=== PATIENT | male | born 1965 | race Caucasian/White ===

== ENCOUNTER 2022-10-06 08:07 | Outpatient (CLI) | payer OTHER, SELFPAY ==
[2022-10-06 12:38] LABS: Chloride* 105 mmol/L (96-114); Potassium* 4.6 mmol/L (3.6-5.1); Sodium* 140 mmol/L (135-149)
[2022-10-06 12:40] LABS: Cholesterol* 166 mg/dL (90-199)
[2022-10-06 12:41] LABS: Blood Urea Nitrogen* 16 mg/dL (7-30); Carbon Dioxide* 31 mmol/L (20-32); Creatinine* 0.9 mg/dL (0.5-1.5); Estimated Glomerular Filt Rate 98 ml/min; Glucose* 98 mg/dL (60-115); Triglycerides* 100 mg/dL (40-149)
[2022-10-06 12:42] LABS: Calcium* 9.1 mg/dL (8.4-10.6); HDL Cholesterol* 44 mg/dL (>=40); LDL Cholesterol Calculated 102 mg/dL (<100)
== END 2022-10-06 08:08 | disposition home or self-care (01) ==
PROVIDERS: PCP Family Medicine; Visit Provider Family Medicine
DX: I10 Essential (primary) hypertension (principal); E78.5 Hyperlipidemia, unspecified
CPT/HCPCS: 80048; 80061

== ENCOUNTER 2023-05-01 08:30 | Outpatient (RCR) | payer OTHER, SELFPAY | END 2023-08-29 23:59 | disposition home or self-care (01) | PROVIDERS: PCP Family Medicine; Visit Provider Family Medicine | DX: M54.50 Low back pain, unspecified (principal); Z74.09 Other reduced mobility; R29.3 Abnormal posture; R53.1 Weakness; Z51.89 Encounter for other specified aftercare | CPT/HCPCS: 97110; 97161 ==

== ENCOUNTER 2024-07-17 08:55 | Outpatient (CLI) | payer OTHER, SELFPAY ==
--- NOTE | 2024-07-17 09:15 | CRLHL7_ITS ---
For Patients: As a result of the Century Cures Act, medical imaging exams and procedure reports are released immediately into your electronic medical record. You may view this report before your referring provider. If you have questions, please contact your health care provider. Indication: Unilateral osteoarthritis Procedure : Informed consent was obtained. The site was marked. Time-out was performed. The skin of the right hip was cleansed with ChloraPrep. A sterile drape was placed. 8 cc of 1 percent lidocaine was administered for superficial anesthesia. Subsequently a 22 gauge spinal needle was introduced into the right hip joint under intermittent fluoroscopic guidance. Injection of 2 cc nonionic Omnipaque 240 contrast confirmed intra-articular location. Subsequently 7 cc of 1 percent lidocaine and 2 cc of 40 milligram/cc Depo-Medrol then injected into the right hip joint. The needle was removed and hemostasis achieved with direct pressure. A dressing was placed. The patient tolerated the procedure well without immediate complication. Total fluoroscopy time 22 seconds. Impression: Successful fluoroscopically guided right hip injection with 80 milligrams of Depo-Medrol. Dictated by Miles Weber MD @ 07/17/2024 10:27:09 AM (Electronically Signed)
== END 2024-07-17 08:56 | disposition home or self-care (01) ==
LOC: RAD 08:56
PROVIDERS: PCP Family Medicine; Visit Provider Orthopaedic Surgery Sports Medicine
DX: M16.11 Unilateral primary osteoarthritis, right hip (principal)
CPT/HCPCS: 20610; 77002; Q9966

== ENCOUNTER 2025-03-17 08:09 | Outpatient (CLI) | payer BC, SELFPAY | END 2025-03-17 08:10 | disposition home or self-care (01) | LOC: NFLDREF 03-18 14:30 | PROVIDERS: PCP Family Medicine; Referring Provider Family Medicine; Visit Provider Family Medicine | DX: I10 Essential (primary) hypertension (principal); E78.2 Mixed hyperlipidemia; Z12.5 Encounter for screening for malignant neoplasm of prostate; Z13.0 Encounter for screening for diseases of the blood and blood-forming organs and certain disorders involving the immune mechanism | CPT/HCPCS: 80048; 80061; G0103 ==

== ENCOUNTER 2025-04-01 08:47 | Outpatient (CLI) | payer BC, SELFPAY ==
--- NOTE | 2025-04-01 09:15 | CRLHL7_ITS ---
For Patients: As a result of the Century Cures Act, medical imaging exams and procedure reports are released immediately into your electronic medical record. You may view this report before your referring provider. If you have questions, please contact your health care provider. Indication: Neuralgia and neuritis. Technique: MRI of the cervical spine was performed without the use of intravenous contrast. Comparison: MRI cervical spine 11/01/2017. Findings: The vertebral body heights appear maintained without evidence of fracture. No discrete T1 hypointense marrow infiltrating process. Mild to moderate multilevel disc height loss and degeneration. No abnormal cord signal. C2-3: No spinal canal or neural foraminal narrowing. C3-4: Disc degeneration with Modic type 2 endplate change. Disc osteophyte complex results in moderate spinal canal narrowing. Moderate neural foraminal narrowing secondary to uncovertebral joint and facet arthropathy. Progressed. C4-5: No spinal canal or neural foraminal narrowing. C5-6: Disc osteophyte complex with small central disc protrusion resulting in minimal spinal canal narrowing. Mild right neural foraminal narrowing. Progressed. C6-7: Disc osteophyte complex with minimal spinal canal narrowing. Moderate neural foraminal narrowing. Progressed. C7-T1: No spinal canal or neural foraminal narrowing. Impression: 1. Progressed multilevel degeneration. 2. At C3-4, moderate spinal canal and neural foraminal stenosis. 3. At C5-6, small central disc protrusion with minimal spinal canal narrowing. 4. At C6-7, moderate neural foraminal narrowing. 5. No abnormal cord signal. Dictated by Viet Armstrong MD @ 04/03/2025 9:01:03 AM (Electronically Signed)
== END 2025-04-01 08:48 | disposition home or self-care (01) ==
LOC: MRI 08:48
PROVIDERS: PCP Family Medicine; Visit Provider Family Medicine
DX: M79.2 Neuralgia and neuritis, unspecified (principal); M48.02 Spinal stenosis, cervical region; M50.222 Other cervical disc displacement at C5-C6 level; M50.223 Other cervical disc displacement at C6-C7 level
CPT/HCPCS: 72141

== ENCOUNTER 2025-04-07 08:00 | Outpatient (CLI) | payer BC, SELFPAY | END 2025-04-07 08:01 | disposition home or self-care (01) | LOC: NFLDREF 04-09 12:47 | PROVIDERS: PCP Family Medicine; Visit Provider Family Medicine | DX: R19.7 Diarrhea, unspecified (principal) | CPT/HCPCS: 87045; 87046; 87427; 87493 ==

== ENCOUNTER 2025-06-07 12:24 | Emergency (ER) | payer BC, SELFPAY ==
[2025-06-07] VITALS (20 sets, daily range): BP systolic 120–141; BP diastolic 70–92; PULSE 74–99; RESP 10–19; TEMP 37.1; O2SAT 92–99; BMI 28.3
--- OUTSIDE RECORDS SUMMARY | 2025-06-07 12:25 | XMS_ITS | Clinical Summary ---
Author Organization [facility] Address [address] [place] [id number] Care Team Providers Care Factory Expert Name Role Phone Deng Vieira MD Primary Care Provider [phone] Allergies Active Allergy Reactions Criticality Noted Date Comments Oxycodone-Acetaminophen Itching 06/18/2008 Rosuvastatin Myalgia 10/11/2009 Simvastatin Myalgia 10/11/2009 Medications MULTIVITAMIN ORAL Take 1 Tab by mouth. Active aspirin chewable 81 mg chewable tablet Take 1 tablet by mouth once daily with a meal. 0 3 Active nitroglycerin (NITROSTAT) 0.4 mg sublingual tabletIndications:A rteriosclerotic cardiovascular disease (ASCVD) Place 1 tablet under the tongue every 5 minutes if needed. 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 30 tablet 3 7 Active venlafaxine (EFFEXOR XR) 150 mg Extended-Release capsule Take 150 mg by mouth once daily in the afternoon. 9 Active pravastatin (PRAVACHOL) 40 mg tablet 1 Active clopidogreL (PLAVIX) 75 mg tabletIndications:A rteriosclerotic cardiovascular disease (ASCVD) Take 1 Tablet (75 mg) by mouth once daily. 90 tablet. 3 1 Active lisinopriL (PRINIVIL; ZESTRIL) 20 mg tabletIndications:S T elevation myocardial infarction (STEMI), unspecified artery (HC) Take 1 Tablet (20 mg) by mouth two times daily. 180 Tablet 1 5 Active Active Problems Problem Noted Date Diagnosed Date Coronary artery disease invo lving [place] coronary artery of [place] heart without angina pectoris 08/09/2021 Rib pain on left side 09/17/2016 HTN (hypertension) 03/19/2013 Arteriosclerotic cardiovascular disease (ASCVD) 10/16/2008 Overview (08/25/2021): - Acute [place] 06/01. Thrombotic lesion in the mid RCA, which was 60% occlusive, and a distal 99% lesion. Both RCA lesions were stented with 2 Promus drug-eluting stents. Left coronary system - 50% mid-LAD lesion, 50% diagonal lesion, 50% ramus intermediate lesion. 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 10/16 Patient & not fully aware of this diagnosis and implications. GERD (gastroesophageal reflux disease) 8 Acute myocardial infarction of other inferior wall, episode of care unspecified 06/18/2008 Smoker 06/18/2008 Sinusitis 06/18/2008 Overview (06/18/2008): On cipro ST elevation myocardial infa rction involving left anterior descending (LAD) coronary artery Resolved Problems Problem Noted Date Diagnosed Date Resolved Date Carcinoid tumor 10/16/2008 10/16/2008 Encounters Date Type Department Care Team Description 06/03/2025 Telephone [facility] [employer] [address] [place], [place] [id number] Demar Cruz, DO Screening (Injection prescreening- Cervical MBB #2) 06/01/2025 Nurse Triage [facility] [address] [facility] [address] [place] [id number] Demar Cruz DO Results (Pain Diary L cervical MBB #1) 05/29/2025 Orders Only [facility] [address] [facility] [address] [place] [id number] Demar Cruz DO <No scans attached> 05/19/2025 Transcribe Orders [facility] [address] [place] [id number] Renard Levi PA 05/06/2025 Telephone [facility] [address] [place] [address] [address] [place] [id number] Demar Cruz DO Screening (Injection Prescreening ) 05/05/2025 Transcribe Orders [facility] [address] [place] [address] Renard Levi PA from Last 3 Months Immunizations Immunization Administration Dates Next Due Hepatitis B, Unspecified 02/24/2015,09/08/2014,1 10/04/2013 Influenza A (H1N1), Inactivated 09/20/2009 Influenza A (H1N1), Inactiva esther (Age >=3 Years) 09/20/2009 Influenza Virus, Unspecified 06/14/2021 Influenza, IIV3 (Age 6-35 mos) 10/17/2008 Influenza, IIV3 (Age >=3 years) 06/27/2011 Influenza, IIV4 07/26/2019, 8,09/18/2016,2015 Influenza, IIV4 (=>6mos) MDV 06/07/2020,07/21/20 19 Pneumococcal Poly,23-Valent (Pneumovax) 02/10/2013 Td (Age >=7 Years) 01/03/1996 Tdap 07/24/2012 Family History Medical History Relation Name Comments Good Health Other family is in go od health, no health conditions run in the family Relation Name Status Comments Other Social History Tobacco Use Types Packs/Day Years Used Date Smoking Tobacco: Former Cigarettes 1 25 0 03/10/1988 - 03/10/2013 Smokeless Tobacco: Former Chew Quit: 09/20/2016 Tobacco Cessation:Counseling Given: Yes Comments:TIP done 09/18/16 Alcohol Use Standard Drinks/Week Comments No 0 (1 standard drink = 0.6 oz pur e alcohol) Quit 2001, was heavy drinker. 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[employer] Gender Identity Not on file Sexual Orientation Not on file Obstetrics History Last Filed Vital Signs Vital Sign Reading Time Taken Comments Blood Pressure 138/85 03/15/2023 7:56 AM CDT Pulse 53 03/15/2023 7:56 AM CDT Temperature 36.6 C (97.8 F) 08/25/2021 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 Respiratory Rate 16 08/25/2021 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 Oxygen Saturation 100% 03/15/2023 7:56 AM CDT Inhaled Oxygen Concentration - - Weight 90.6 kg (199 lb 12.8 oz) 03/15/2023 7:56 AM CDT Height 167.6 cm (5' 6) 08/24/2021 11:0 0 AM [employer]HOUSE ASSEM[employer]Y WORKER Body Mass Index 32.25 08/24/2021 11:00 AM WAREHOUSE ASSEMBLY WORKER Plan of Treatment Health Maintenance Due Date Last Done Comments Depression screening for age 12+ 1975 HIV for age 15-65 1978 Hepatitis C screening for ag e 18-79 1981 Colonoscopy through age [address] (for lung CA) ag e 50-80 2013 Zoster (shingles) series for age 50+ (1 of 2) 2013 Pneumococcal series for age 50+ (2 of 2 - PCV) 02/10/2014 02/10/2013 BMI (ht and wt on same day) for age 18+ 12/05/2017 12/05/2016 Tetanus booster 07/24/2022 07/24/2012, 01/03/1996 RSV vaccine for adults or (1 - Risk 60-74 years 1-dose series) 2023 COVID-19 vaccine series ( season) 2025 08/14/2022, 09/19/2021, 01/18/2021, Additional history exists Influenza Vaccine (#1) 2025 , 06/07/2020, 07/26/2019, Additional history exists Lipids for age 45-75 08/24/2026 08/24/2021, 12/04/2018, 08/31/2017, Additional history exists Hepatitis B series for 19+ Completed 02/24, 09/08/2014, 08/04/2014 Procedures Procedure Name Priority Date/Time Associated Diagnosis Comments LIPID PANEL AALIYAH 08/24/2021 11:05 AM WAREHOUSE [employer]SEMBL[employer] WORKER from Last 3 Months or Most Recently Relevant to Health Maintenance Results * Lipid Panel (08/24/2021 11:05 AM WAREHOUSE ASSEMBLY WORKER) CHOLESTEROL,TOTAL 177 100 - 199 mg/dL 08/24/2021 11:56 AM WAREHOUSE ASSEMBLY WORKER [facility] [place] [facility] TRIGLYCERIDES 138 <150 mg/dL 08/24/2021 11:56 AM WAREHOUSE ASSEMBLY WORKER [facility] HDL CHOLESTEROL 41 >40 mg/dL 11:56 AM WAREHOUSE ASSEMBLY WORKER [facility] NON-HDL CHOLESTEROL 136 <145 mg/dl 08/24/2021 11:56 AM WAREHOUSE ASSEMBLY WORKER [facility] CHOL/HDL RATIO 4.32 <4.50 08/24/2021 11:56 AM WAREHOUSE ASSEMBLY WORKER [facility] LDL CHOLESTEROL 108 <=130 mg/dL 08/24/2021 11:56 AM WAREHOUSE ASSEMBLY WORKER [facility] VLDL CHOLESTEROL 28 <=30 mg/dL 08/24/2021 11:56 AM WAREHOUSE ASSEMBLY WORKER [facility] PROVIDER ORDERED STATUS RANDOM 08/24/2021 11:56 AM WAREHOUSE ASSEMBLY WORKER [facility] Blood BLOOD SPECIMEN / Unknown Butterfly / Unknown 08/24/2021 11:05 AM WAREHOUSE ASSEMBLY WORKER 08/24/2021 11:13 AM WAREHOUSE ASSEMBLY WORKER us [place] [employer]STER CHEMISTRY Final Result [facility] [address] [place] [address], from Last 3 Months or Most Recently Relevant to Health Maintenance Insurance BLUE CROSS OF NON-VA-ITS WORKERS COMP WC WORKERS COMP [facility] Advance Directives * Full Code (Latest Code Status on File) Date Activated Date Inactivated Comments 08/24/2021 3:50 PM 08/25/2021 1:13 PM Question Answer Comments Code Status Discussion: Unable to Assess Preferences, Provider to review later * Full Code Date Activated Date Inactivated Comments 09/18/2016 8:26 AM 09/19/2016 12:59 PM Question Answer Comments Code Status Discussion: Not Discussed * Full Code Date Activated Date Inactivated Comments 09/17/2016 2:15 AM 09/18/2016 8:26 AM * Full Code Date Activated Date Inactivated Comments 03/19/2013 11:48 PM 03/21/2013 2:54 PM * Full Code Date Activated Date Inactivated Comments 10/16/2008 2:14 PM 10/24/2008 3:19 PM Care Teams Factory Expert Relationship Specialty Start Date End Date Deng Vieira MD PCP - General Family Practice 10/20/16
--- NOTE | 2025-06-07 12:40 | CRLHL7_ITS ---
For Patients: As a result of the 21st Century Cures Act, medical imaging exams and procedure reports are released immediately into your electronic medical record. You may view this report before your referring provider. If you have questions, please contact your health care provider. INDICATION: 8 foot fall. (Sic) No other history given. COMPARISON: None available. TECHNIQUE: CT of the chest, abdomen and pelvis with 89 cc of Isovue 370 intravenous contrast. Please note that all CT scans at this facility use dose modulation, iterative reconstruction, and/or weight-based dosing when appropriate to reduce radiation dose to as low as reasonably achievable. FINDINGS: THORAX Thoracic Aorta: No periaortic hemorrhage, intraluminal thrombus or intimomedial flap, intramural hematoma, contour abnormality/caliber change or active extravasation. Pulmonary Arterial Vasculature: Opacification of the pulmonary arterial tree is adequate for assessment of pulmonary embolism. No intraluminal pulmonary arterial filling defect is identified to indicate a pulmonary embolism. Lungs: No lung injury. No significant incidental findings. Pleura: No hemothorax. No pneumothorax. No simple effusion. Mediastinum: No mediastinal hemorrhage or pneumomediastinum. Cardiomegaly. Severe multifocal multivessel atherosclerotic coronary artery calcifications. Trachea and esophagus are normal in appearance. No mediastinal lymphadenopathy. Visualized Lower Neck: No significant incidental findings. ABDOMEN AND PELVIS Peritoneal Cavity/Retroperitoneum: No hemoperitoneum or other intraperitoneal free fluid. No retroperitoneal hemorrhage. Spleen Subcapsular hematoma: Absent. Laceration: Absent. Intraparenchymal hematoma: Absent. Vascular injury: Absent. Incidental findings: No significant incidental splenic findings. Liver Subcapsular hematoma: Absent. Laceration: Absent. Intraparenchymal hematoma: Absent. Lobar disruption: Absent. Vascular injury: Absent. Incidental findings: No significant incidental hepatic findings. Kidneys Subcapsular hematoma: Absent. Laceration: Absent. Perinephric hematoma: Absent. Vascular or collecting system injury: Absent. Incidental findings: No significant incidental renal findings. Pancreas Peripancreatic edema/free fluid: Absent. Pancreatic enhancement: Uniform. Contusion: Absent. Laceration: Absent. Incidental findings: No significant incidental pancreatic findings. Gastrointestinal tract Normal caliber, attenuation and wall thickness of the gastrointestinal tract. No small bowel mesenteric edema, free fluid or gas. Sigmoid diverticulosis. Ileo-ileal anastomosis associated with a fluid filled surgical blind pouch. Gallbladder: Normal size. No pericholecystic inflammatory changes. Normal common duct caliber. Adrenal Glands: Symmetrical adrenal glands. No focal lesion of significance. Vascular: No periaortic hemorrhage, intraluminal thrombus or intimomedial flap, intramural hematoma, contour abnormality/caliber change or active extravasation. No aneurysm. Abdominal aorta and its major proximal branches including the celiac, superior mesenteric, inferior mesenteric, renal, and bilateral common iliac arteries are patent. Patent portal vein and major tributaries. Pelvic genitourinary: No bladder lesion is identified. No significant incidental findings related to the prostate or seminal vesicles. INCLUDED SKELETON AND BODY WALL Spine: No significant spondylolisthesis, widening of the intervertebral disc spaces, interfacetal joints or interspinous distances. Vertebral bodies, pedicles, laminae, articular, transverse and spinous processes are intact. Bony Pelvis: No pelvic fracture is identified. Ribs: No rib fracture is identified. Visualized appendicular skeleton: No fracture is identified. Body Wall: No soft tissue injury is identified. NB: Detection of acute traumatic injury on imaging is improved with a specific clinical history as to the anatomical region or regions of concern. If there is ongoing clinical concern for an undiagnosed injury after secondary clinical survey then this examination can be reviewed if additional clinical history is forthcoming. IMPRESSION: 1. No acute traumatic injury is identified. If there is ongoing clinical concern for an undiagnosed injury after secondary clinical survey then this examination can be reviewed if additional clinical history is forthcoming. 2. Incidental findings as above. Please note that all CT scans at this facility use dose modulation, iterative reconstruction, and/or weight-based dosing when appropriate to reduce radiation dose to as low as reasonably achievable. Dictated by Bakari Alston MD @ 06/07/2025 1:59:43 PM (Electronically Signed)
--- NOTE | 2025-06-07 12:46 | ED.TRAUMA ---
HPI - Trauma General Chief Complaint: Extremity Pain/Injury, Upper Stated Complaint: rib/arm pain Time Seen by Provider: 06/07/25 12:39 History of Present Illness HPI narrative: This 60-year-old male comes in with his because he fell through the rafters and landed about 8 ft below onto a bucket. He was able to ambulate into the ER and came by private vehicle. A trauma team activation is initiated. He states that he did not hit his head or have loss of consciousness. He does not report any neck or back pain. He does take Plavix and has a history of coronary artery disease with stents in place. He reports pain along his right lower anterior ribs and upper abdomen. He also has bruising on the inner aspect of his right upper extremity. He arrives here with normal vital signs and has no neurologic deficits. Related Data Home Medications ?Medication ?Instructions ?Recorded ?Confirmed multivitamin 1 tab PO QAM 06/11/24 06/07/25 Previous Rx's ?Medication ?Instructions ?Recorded lisinopril 20 mg tablet 20 mg PO QDAY #90 tabs 10/10/23 nitroglycerin 0.4 mg sublingual 0.4 mg sublingual Q5-15M #25 ea 07/18/24 tablet albuterol sulfate 90 mcg/actuation 2 puff inhalation Q6H PRN 04/02/25 aerosol inhaler shortness of breath or wheezing #6.7 grams trazodone 100 mg tablet 100 mg PO QHS PRN insomnia #90 tabs 04/07/25 clopidogrel 75 mg tablet 75 mg PO QDAY #90 tabs 04/13/25 metoprolol succinate 25 mg 25 mg PO QDAY #90 tabs 04/13/25 tablet,extended release 24 hr pravastatin 40 mg tablet 40 mg PO QHS #90 tabs 04/13/25 albuterol sulfate 90 mcg/actuation 2 inh inhalation Q4-6H PRN #1 ea 06/07/25 breath activated powder inhaler hydrocodone 5 mg-acetaminophen 325 1 tab PO Q4-6H PRN pain #20 tabs 06/07/25 mg tablet ketorolac 10 mg tablet 10 mg PO TID 5 days #15 tabs 06/07/25 Allergies Allergy/AdvReac Type Severity Reaction Status Date / Time acetaminophen (From Percocet) Allergy Mild Rash Verified 06/07/25 12:33 oxycodone (From Percocet) Allergy Mild Rash Verified 06/07/25 12:33 rosuvastatin Allergy Unknown Unknown Verified 06/07/25 12:33 simvastatin Allergy Unknown Unknown Verified 06/07/25 12:33 Review of Systems Status of ROS: Reports: 10 or more systems reviewed and unremarkable except as noted in History and below Narrative: Constitutional: No fevers, no weight gain or loss. Eyes: No discharge. No vision changes. HENT: No congestion, no sore throat, no ear pain. Cardiovascular: No chest pain, no palpitations. Respiratory: No shortness of breath, no wheezes, no cough. Gastrointestinal: No vomiting, no diarrhea. Right upper abdominal and lower chest pain. Genitourinary: No dysuria, no hematuria. Musculoskeletal: Normal range of motion. Bruising on the inner aspect of his right upper extremity. Skin: No rashes, no pruritis. Neurological: No dizziness, weakness, sensory change, speech change. Endo/Heme/Allergies: No bleeding. No polydipsia. Pysch: no suicidality, no anxiety, no insomnia. All other systems reviewed and are negative. [facility] Medical History Oral thrush ?B37.0 - Candidal stomatitis (ICD-10) Strain of flexor muscle of right hip ?S76.011A - Strain of muscle, fascia and tendon of right hip, initial encounter (ICD-10) Strain of lumbar region ?S39.012A - Strain of muscle, fascia and tendon of lower back, initial encounter (ICD-10) Surgical History History of arthroscopy of right shoulder (02/01/11) ?Z98.890 - Other specified postprocedural states (ICD-10) H/O elbow surgery ?Z98.890 - Other specified postprocedural states (ICD-10) Status post vasectomy ?Z98.52 - Vasectomy status (ICD-10) Status post small bowel resection ?Z90.49 - Acquired absence of other specified parts of digestive tract (ICD-10) Status post repair of ligament of ankle (09/12/10) ?Z98.890 - Other specified postprocedural states (ICD-10) History of coronary artery stent placement (09/12/10) ?Z95.5 - Presence of coronary angioplasty implant and graft (ICD-10) Family History Other ASCVD (arteriosclerotic cardiovascular disease) Social History Smoking Status: Former smoker Exam Narrative: Exam Narrative: Primary Survey: Vital Signs are within normal limits. Airway: Open. Breathing: Easy. Circulation: no obvious bleeding; normal capillary refill. Disability: GCS is 15. Normal pupillary response and motor movements. Secondary Survey: Head: Normocephalic Neck: No midline tenderness. ROM intact. Chest: Tenderness in the right lower anterior ribs. Abdomen: Tenderness in the right upper abdomen and right lower ribs. Normal bowel sounds. Pelvis/Genitals: No tenderness to A/P and lateral stress. Extremities: Right upper extremity has bruising and abrasions on the inner aspect. No sign of deformity. Normal range of motion. Back: No midline tenderness. No sign of injury. Primary and Secondary surveys are completed. The patient's GCS is 15. Const: Vital Signs, click to edit/add: Vital Signs - 24 hr 06/07/25 12:26 06/07/25 13:08 06/07/25 13:09 Temperature 98.8 F Pulse Rate 87 89 Pulse Rate [Pulse Oximeter] 87 Respiratory Rate 18 16 Blood Pressure 134/77 Blood Pressure [Le ft Upper Arm] 120/77 Pulse Oximetry 99 98 96 Oxygen Delivery Me thod Room Air 06/07/25 13:12 06/07/25 13:15 06/07/25 13:21 Temperature Pulse Rate 97 95 80 Pulse Rate [Pulse Oximeter] Respiratory Rate 16 16 Blood Pressure 128/86 128/70 Blood Pressure [Le ft Upper Arm] Pulse Oximetry 94 96 95 Oxygen Delivery Me thod 06/07/25 13:30 06/07/25 13:31 06/07/25 13:32 Temperature Pulse Rate 77 90 99 Pulse Rate [Pulse Oximeter] Respiratory Rate 16 Blood Pressure 129/92 H Blood Pressure [Le ft Upper Arm] Pulse Oximetry 97 96 95 Oxygen Delivery Me thod 06/07/25 13:42 06/07/25 13:45 06/07/25 13:52 Temperature Pulse Rate 92 79 85 Pulse Rate [Pulse Oximeter] Respiratory Rate 12 18 13 Blood Pressure 141/87 H 131/91 H Blood Pressure [Le ft Upper Arm] Pulse Oximetry 96 92 95 Oxygen Delivery Me thod 06/07/25 14:00 06/07/25 14:02 Temperature Pulse Rate 87 74 Pulse Rate [Pulse Oximeter] Respiratory Rate 15 12 Blood Pressure 128/88 Blood Pressure [Le ft Upper Arm] Pulse Oximetry 93 94 Oxygen Delivery Me thod Course Vital Signs Vital signs: Initial Vital Signs Temperature 98.8 F 06/07/25 12:26 Temperature Source Temporal Artery Scan 06/07/25 12:26 Pulse Rate 87 06/07/25 12:26 Respiratory Rate 18 06/07/25 12:26 Blood Pressure 120/77 06/07/25 12:26 Blood Pressure Mean 91 06/07/25 12:26 Blood Pressure Position Sitting 06/07/25 12:26 Pulse Oximetry 99 06/07/25 12:26 Oxygen Delivery Method Room Air 06/07/25 12:26 Vital Signs Temperature 98.8 F 06/07/25 12:26 Pulse Rate 87 06/07/25 12:26 Respiratory Rate 18 06/07/25 12:26 Blood Pressure 120/77 06/07/25 12:26 Pulse Oximetry 99 06/07/25 12:26 Oxygen Delivery Method Room Air 06/07/25 12:26 Temperature 98.8 F 06/07/25 12:26 Pulse Rate 74 06/07/25 14:02 Respiratory Rate 12 06/07/25 14:02 Blood Pressure 128/88 06/07/25 14:02 Pulse Oximetry 94 06/07/25 14:02 Oxygen Delivery Method Room Air 06/07/25 12:26 Medications Administered Medications: Discontinued Medications Generic Name Dose Route Start Last Admin Trade Name Freq PRN Reason Stop Dose Admin Hydromorphone HCl 0.5 mg 06/07/25 12:43 06/07/25 13:11 Hydromorphone 0.5 Mg/0.5 Ml Inj IVP 06/07/25 12:44 0.5 mg ONCE ONE Administration MDM - Trauma MDM Narrative Medical decision making narrative: This patient comes in with injuries from trauma as described above. An IV was established where he did receive Dilaudid 0.[address] imaging of chest, abdomen, and pelvis with IV contrast is obtained. These results showed no acute findings as result of this injury. This was reassuring to the patient. He does have bruising and will likely have significant pain because of rib contusion on the right lower anterior ribs. He is okay to be discharged home. I did provide to return to work note and prescriptions for Toradol and [place]. Lab Data Labs: Lab Results 06/07/25 06/07/25 Range/Units 12:42 12:45 WBC 14.87 H (4.50-11.00) K/uL RBC 4.82 (4.30-5.90) m/uL Hgb 14.4 (13.5-17.5) gm/dL Hct 41.8 (37.0-53.0) % MCV 87 (80-100) fL MCH 30 (26-34) pg MCHC 34 (32-36) gm/dL RDW Coeff of Sneha 13.0 (11.5-15.5) % Plt Count 300 (140-440) K/uL Neut % (Auto) 79.4 H (42.0-72.0) % Lymph % (Auto) 12.3 L (20-44) % [place] % (Auto) 6.9 (0.0-11.0) % Eos % (Auto) 0.9 (0.0-7.0) % Baso % (Auto) 0.1 (0.0-3.0) % Neut # (Auto) 11.80 H (1.7-7.0) K/uL Lymph # (Auto) 1.80 (0.90-2.90) K/uL [place] # (Auto) 1.00 H (0.00-0.90) K/UL Eos # (Auto) 0.10 (0.00-0.50) K/uL Baso # (Auto) 0.00 (0.00-0.30) K/uL Abs Immat Gran (auto) 0.10 (0.00-0.30) K/uL Imm/Tot Granulo (auto) 0.4 % Diff Slide Review Acceptable Review (Acceptable) Sodium 138 (135-149) mmol/L Potassium 3.9 (3.6-5.1) mmol/L Chloride 106 (96-114) mmol/L Carbon Dioxide 23 (20-32) mmol/L Anion Gap 9 (7-15) mEq/L BUN 12 (7-30) mg/dL Creatinine 1.2 (0.5-1.5) mg/dL Estimated Creat Clear 59.67 Estimated GFR 68 ml/min Glucose 103 (60-115) mg/dL Calcium 9.3 (8.4-10.6) mg/dL POC Troponin I 0.02 (0.01-0.04) ng/ml Imaging Data CT Chest/Ab/Pelvis: Radiologist's impression: No acute traumatic injury is identified. If there is ongoing clinical concern for an undiagnosed injury after secondary clinical survey then this examination can be reviewed if additional clinical history is forthcoming. ECG Data Attestation: I personally reviewed and interpreted this ECG as follows: Interpretation: Normal sinus rhythm. Rate is 99 beats per minute. There are no ST or T-wave abnormalities. Discharge Plan Discharge Clinical Impression: Multiple contusions Patient Disposition: Home w/ Parent or Adult Condition: Stable Additional Instructions: Use medication as needed and directed for symptomatic relief. Increase activity as tolerated. Follow up with MD return if worsening. Prescriptions: New hydrocodone-acetaminophen 5-325 mg tablet 1 tab PO Q4-6H PRN (Reason: pain) Qty: 20 0RF ketorolac 10 mg tablet 10 mg PO TID 5 Days Qty: 15 0RF albuterol sulfate 90 mcg/actuation aerosol powdr breath activated 2 inh inhalation Q4-6H PRNQty: 1 0RF No Action clopidogrel 75 mg tablet 75 mg PO QDAY Qty: 90 3RF metoprolol succinate 25 mg tablet extended release 24 hr 25 mg PO QDAY Qty: 90 3RF pravastatin 40 mg tablet 40 mg PO QHS Qty: 90 3RF lisinopril 20 mg tablet 20 mg PO QDAY Qty: 90 3RF multivitamin Tablet 1 tab PO QAM albuterol sulfate 90 mcg/actuation HFA aerosol inhaler 2 puff inhalation Q6H PRN (Reason: shortness of breath or wheezing) Qty: 6.7 0RF nitroglycerin 0.4 mg tablet, sublingual 0.4 mg sublingual Q5-15M Qty: 25 3RF trazodone 100 mg tablet 100 mg PO QHS PRN (Reason: insomnia) Qty: 90 3RF Follow Up/Referrals: Deng Vieira MD [Primary Care Provider, Family Practice] Stand Alone Forms: [employer] Info Instructions
[2025-06-07 13:02] LABS: Hematocrit* 41.8 % (37.0-53.0); Hemoglobin* 14.4 gm/dL (13.5-17.5); Immature Granulocytes Pct Auto 0.4 %; Mean Corpuscular HGB Conc 34 gm/dL (32-36); Mean Corpuscular Hemoglobin 30 pg (26-34); Mean Corpuscular Volume 87 fL (80-100); RDW Coefficient of Variation % 13.0 % (11.5-15.5); Red Blood Count* 4.82 m/uL (4.30-5.90); White Blood Count* 14.87 K/uL (4.50-11.00)
[2025-06-07 13:03] LABS: Troponin, Point-of-Care* 0.02 ng/ml (0.01-0.04)
[2025-06-07 13:14] LABS: Chloride* 106 mmol/L (96-114)
[2025-06-07 13:15] LABS: Potassium* 3.9 mmol/L (3.6-5.1); Sodium* 138 mmol/L (135-149)
[2025-06-07 13:17] LABS: Blood Urea Nitrogen* 12 mg/dL (7-30); Creatinine* 1.2 mg/dL (0.5-1.5); Est. Creatinine Clearance* 59.67; Estimated Glomerular Filt Rate 68 ml/min
[2025-06-07 13:18] LABS: Anion Gap 9 mEq/L (7-15); Calcium* 9.3 mg/dL (8.4-10.6); Carbon Dioxide* 23 mmol/L (20-32); Glucose* 103 mg/dL (60-115)
[2025-06-07 13:22] LABS: Immature Granulocytes Abs Auto 0.10 K/uL (0.00-0.30); Lymphocytes Absolute Auto 1.80 K/uL (0.90-2.90); Slide Review Reflex Yes
[2025-06-07 13:23] LABS: Slide Review Acceptable Review (Acceptable)
== END 2025-06-07 14:45 | disposition home or self-care (01) ==
PROVIDERS: Emergency Provider Emergency Medicine Emergency Medical Services; PCP Family Medicine
DX: S20.211A Contusion of right front wall of thorax, initial encounter (principal); S40.021A Contusion of right upper arm, initial encounter; W17.89XA Other fall from one level to another, initial encounter
CPT/HCPCS: 36415; 71260; 74177; 80048; 84484; 85025; 93005; 94761; 96374; 99285; 99291; J1171; Q9967

== ENCOUNTER 2025-07-01 12:10 | Outpatient (CLI) | payer BC, SELFPAY | END 2025-07-01 12:11 | disposition home or self-care (01) | PROVIDERS: PCP Family Medicine; Visit Provider Family Medicine | DX: R11.0 Nausea (principal); R61 Generalized hyperhidrosis | CPT/HCPCS: 80076; 86140 ==

== ENCOUNTER 2025-07-15 03:35 | Emergency (ER) | payer BC, SELFPAY ==
--- OUTSIDE RECORDS SUMMARY | 2025-07-15 03:37 | XMS_ITS | Clinical Summary ---
Author Organization [facility] [facility] Address [address] [place] [address] Care Team Providers Care Bit Gatherer Name Role Phone Deng Vieira MD Primary Care Provider [phone] Allergies Active Allergy Reactions Criticality Noted Date Comments Oxycodone-Acetaminophen Itching 06/18/2008 Rosuvastatin Myalgia 10/11/2009 Simvastatin Myalgia 10/11/2009 Medications MULTIVITAMIN ORAL Take 1 Tab by mouth. Active aspirin chewable 81 mg chewable tablet Take 1 tablet by mouth once daily with a meal. 0 03/20/20 13 Active nitroglycerin (NITROSTAT) 0.4 mg sublingual tabletIndications :Arteriosclerotic cardiovascular disease (ASCVD) Place 1 tablet under the tongue every 5 minutes if needed. Usual max 3 and if still no relief call 911 25 tablet 6 10:52 AM SURVEILLANCE TECHNICIAN 09/19/20 16 Active metoprolol succinate (TOPROL XL) 50 mg sustained-release tabletIndications :Ischemic cardiomyopathy Take 1 tablet by mouth once daily. 30 tablet 3 12/06/19 17 Active venlafaxine (EFFEXOR XR) 150 mg Extended-Release capsule Take 150 mg by mouth once daily in the afternoon. 11/20/19 19 Active pravastatin (PRAVACHOL) 40 mg tablet 05/25/20 21 Active clopidogreL (PLAVIX) 75 mg tabletIndications :Arteriosclerotic cardiovascular disease (ASCVD) Take 1 Tablet (75 mg) by mouth once daily. 90 tablet. 3 08/24/20 21 Active lisinopriL (PRINIVIL; ZESTRIL) 20 mg tabletIndications :ST elevation myocardial infarction (STEMI), unspecified artery (HC) Take 1 Tablet (20 mg) by mouth two times daily. Needs cardiology appt for further refills. Call to schedule: [phone]. 180 Tablet 07/14/20 Active lisinopriL (PRINIVIL; ZESTRIL) 20 mg tabletIndications :ST elevation myocardial infarction (STEMI), unspecified artery (HC) Take 1 Tablet (20 mg) by mouth two times daily. 180 Tablet 1 10/07/192024 Discontinued Active Problems Problem Noted Date Diagnosed Date Coronary artery disease invo lving [place] coronary artery of [place] heart without angina pectoris 08/09/2021 Rib pain on left side 09/17/2016 HTN (hypertension) 03/19/2013 Arteriosclerotic cardiovascular disease (ASCVD) 10/16/2008 Overview (08/25/2021): - Acute [place] 06/01. Thrombotic lesion in the mid RCA, [...] (10/16/2008): New diagnosis on pathology obtained at [facility]. 10/16 Patient & not fully aware of [...] Encounters Date Type Department Care Team Description 07/11/2025 Refill [facility] [address] [place] [address] Andi Viera MD Refill Request (Lisinopril) 06/26/2025 Telephone [facility] [address] [place] [address] [address] [place] [address] Demar Cruz, DO Screening 06/25/2025 Nurse Triage [facility] [address] [place] [phone] Demar Cruz, DO Results (Cervical MBB #2 Pain Diary ) 06/19/2025 Orders Only [facility] [address] [facility] [address] [place] [address] Demar Cruz, DO <No scans attached> 06/03/2025 Telephone [facility] [address] [facility] [address] [place] [address] Demar Cruz DO Screening (Injection prescreening- Cervical MBB #2) 06/01/2025 Nurse Triage [facility] [address] [place] [phone] Demar Cruz DO Results (Pain Diary L cervical MBB #1) 05/29/2025 Orders Only [facility] [address] [facility] [address] [place] [phone] Demar Cruz, DO <No scans attached> 05/19/2025 Transcribe Orders [facility] [address] [place] [address] Renard Levi PA 05/06/2025 Telephone [facility] [address] [place] [address] [address] [place] [address] Demar Cruz DO Screening (Injection Prescreening ) 05/05/2025 Transcribe Orders [facility] [address] [place] [address] Renard Levi PA from Last 3 Months [...] Comments Good Health [facility] no health conditions run in the [...] on file Legal Sex Male 6:34 AM SURVEILLANCE TECHNICIAN Gender Identity Not on file Sexual Orientation Not on file Obstetrics History Last Filed Vital Signs Vital Sign Reading Time Taken Comments Blood Pressure 138/85 03/15/2023 7:56 AM CDT Pulse 53 03/15/2023 7:56 AM CDT Temperature 36.6 C (97.8 F) 08/25/2021 8:17 AM SURVEILLANCE TECHNICIAN Respiratory Rate 16 08/25/2021 8:17 AM SURVEILLANCE TECHNICIAN Oxygen Saturation 100% 03/15/2023 7:56 AM CDT Inhaled Oxygen Concentration - - Weight 90.6 kg (199 lb 12.8 oz) 03/15/2023 7:56 AM CDT Height 167.6 cm (5' 6) 08/24/2021 11:0 0 AM SURVEILLANCE TECHNICIAN Body Mass Index 32.25 08/24/2021 11:00 AM SURVEILLANCE TECHNICIAN Plan of Treatment Health Maintenance Due Date [...] years 1-dose series) 2023 COVID-19 vaccine series (2024- season) 2025 08/14/2022, 09/19/2021, 01/18/2021, Additional history exists Influenza Vaccine (#1) 2025 , 06/07/2020, 07/26/2019, Additional history exists Lipids for age 45-75 08/24/2026 08/24/2021, 12/04/2018, 08/31/2017, Additional history exists Hepatitis B series for 19+ Completed 02/24, 09/08/2014, 08/04/2014 Procedures Procedure Name Priority Date/Time Associated Diagnosis Comments LIPID PANEL AALIYAH 08/24/2021 11:05 AM SURVEILLANCE TECHNICIAN from Last 3 Months or Most Recently Relevant to Health Maintenance Results * Lipid Panel (08/24/2021 11:05 AM SURVEILLANCE TECHNICIAN) CHOLESTEROL,TOTAL 177 100 - 199 mg/dL 08/24/2021 11:56 AM SURVEILLANCE TECHNICIAN [facility] TRIGLYCERIDES 138 <150 mg/dL 08/24/2021 11:56 AM SURVEILLANCE TECHNICIAN [facility] HDL CHOLESTEROL 41 >40 mg/dL 11:56 AM SURVEILLANCE TECHNICIAN [facility] NON-HDL CHOLESTEROL 136 <145 mg/dl 08/24/2021 11:56 AM SURVEILLANCE TECHNICIAN [facility] CHOL/HDL RATIO 4.32 <4.50 08/24/2021 11:56 AM SURVEILLANCE TECHNICIAN [facility] LDL CHOLESTEROL 108 <=130 mg/dL 08/24/2021 11:56 AM SURVEILLANCE TECHNICIAN [facility] VLDL CHOLESTEROL 28 <=30 mg/dL 08/24/2021 11:56 AM SURVEILLANCE TECHNICIAN [facility] PROVIDER ORDERED STATUS RANDOM 08/24/2021 11:56 AM SURVEILLANCE TECHNICIAN [facility] Blood BLOOD SPECIMEN / Unknown Butterfly / Unknown 08/24/2021 11:05 AM SURVEILLANCE TECHNICIAN 08/24/2021 11:13 AM SURVEILLANCE TECHNICIAN us Le Strong NP CHEMISTRY Final Result [facility] [address] [place] [address], from Last 3 Months or Most Recently Relevant to Health Maintenance Insurance [employer] OF NON-[employer] WORKERS COMP WORKERS COMP WC [employer] Advance Directives * Full Code (Latest Code [...] 2:14 PM 10/24/2008 3:19 PM Care Teams Bit Gatherer Relationship Specialty Start Date End Date Deng Vieira MD PCP - General Family Practice 10/20/16
[2025-07-15 03:49] VITALS: BP 139/96; PULSE 114; RESP 20; TEMP 36.6; O2SAT 98; BMI 28.2
--- NOTE | 2025-07-15 04:07 | CRLHL7_ITS ---
For Patients: As a result of the Cures Act, medical imaging exams and procedure reports are released immediately into your electronic medical record. You may view this report before your referring provider. If you have questions, please contact your health care provider. INDICATION: Chest and rib pain TECHNIQUE: Chest 2 views. COMPARISON: Chest radiograph 06/15/2025 FINDINGS: Cardiovascular and mediastinum: Mild cardiomegaly is stable. Mediastinum is stable. Lungs and pleural spaces: Lung volumes are slightly low. Patchy right lower lobe consolidation trace right pleural effusion. No pneumothorax. Bones and soft tissues: No acute displaced fracture. IMPRESSION: Patchy right lower lobe consolidation and trace right pleural effusion is concerning for infection. Dictated by Anisha Lindsey MD @ 07/15/2025 4:46:25 AM (Electronically Signed)
--- NOTE | 2025-07-15 04:07 | ED.GENADULT ---
HPI - General Adult General Time Seen by Provider: 04:07 Date Seen: 07/15/25 Chief complaint: Rib Pain Stated complaint: abdominal/rib pain Time Seen by Provider: 07/15/25 04:08 Source: patient Mode of arrival: ambulatory History of Present Illness HPI narrative: Tanner is a 60 yo male who presents to the ED for evaluation of rib pain. Patient reports that approximately 1 month ago on 06/07/2025 he fell through the rafters and landed approximately 8 ft below on to a bucket. Patient initially came into the emergency department for right sided rib and upper abdominal pain. Patient had CT imaging of his chest abdomen pelvis at this time which was unremarkable with no evidence of acute fractures or intrathoracic/abdominal injuries. No evidence of acute traumatic injury. Patient states he was sore however rpeorts that for the past 1-2 weeks we has not been able to sleep and has been having difficulty breathing. Patient does note some discomfort on his right lateral side over his ribs however denies any specific pain. Patient denies any pain with deep breath. Patient feels very tired due to lack of sleep. Patient denies any fever, chills, cough or cold-like symptoms, denies any other chest pain, abdominal pain, no other complaints. Related Data Home Medications ?Medication ?Instructions ?Recorded ?Confirmed multivitamin 1 tab PO QAM 06/11/24 07/01/25 Previous Rx's ?Medication ?Instructions ?Recorded lisinopril 20 mg tablet 20 mg PO QDAY #90 tabs 10/10/23 nitroglycerin 0.4 mg sublingual 0.4 mg sublingual Q5-15M #25 ea 07/18/24 tablet albuterol sulfate 90 mcg/actuation 2 puff inhalation Q6H PRN 04/02/25 aerosol inhaler shortness of breath or wheezing #6.7 grams trazodone 100 mg tablet 100 mg PO QHS PRN insomnia #90 tabs 04/07/25 clopidogrel 75 mg tablet 75 mg PO QDAY #90 tabs 04/13/25 metoprolol succinate 25 mg 25 mg PO QDAY #90 tabs 04/13/25 tablet,extended release 24 hr pravastatin 40 mg tablet 40 mg PO QHS #90 tabs 04/13/25 albuterol sulfate 90 mcg/actuation 2 inh inhalation Q4-6H PRN #1 ea 06/07/25 breath activated powder inhaler azithromycin 250 mg tablet See Rx Instructions PO .COMPLEX #6 06/15/25 tabs ondansetron 4 mg disintegrating 4 mg PO Q8H PRN nausea and 06/29/25 tablet vomiting #14 tabs tramadol 50 mg tablet See Rx Instructions PO .ud PRN 07/01/25 pain #60 tabs nystatin 100,000 unit/mL oral 4 ml PO QID 7 days #112 mL 07/15/25 suspension Allergies Allergy/AdvReac Type Severity Reaction Status Date / Time acetaminophen (From Percocet) Allergy Mild Rash Verified 07/01/25 11:22 oxycodone (From Percocet) Allergy Mild Rash Verified 07/01/25 11:22 rosuvastatin Allergy Unknown Unknown Verified 07/01/25 11:22 simvastatin Allergy Unknown Unknown Verified 07/01/25 11:22 Review of Systems Narrative: Past medical history, past surgical history, medications, allergies, family history, and social history were reviewed with the patient. No additional pertinent items. A medically appropriate review of systems was performed with pertinent positives and negatives noted in HPI, all other systems negative. [facility] Medical History Bronchitis ?J40 - Bronchitis, not specified as acute or chronic (ICD-10) Cough ?R05.9 - Cough, unspecified (ICD-10) Oral thrush ?B37.0 - Candidal stomatitis (ICD-10) Strain of flexor muscle of right hip ?S76.011A - Strain of muscle, fascia and tendon of right hip, initial encounter (ICD-10) Strain of lumbar region ?S39.012A - Strain of muscle, fascia and tendon of lower back, initial encounter (ICD-10) Surgical History History of arthroscopy of right shoulder (02/01/11) ?Z98.890 - Other specified postprocedural states (ICD-10) H/O elbow surgery ?Z98.890 - Other specified postprocedural states (ICD-10) Status post vasectomy ?Z98.52 - Vasectomy status (ICD-10) Status post small bowel resection ?Z90.49 - Acquired absence of other specified parts of digestive tract (ICD-10) Status post repair of ligament of ankle (09/12/10) ?Z98.890 - Other specified postprocedural states (ICD-10) History of coronary artery stent placement (09/12/10) ?Z95.5 - Presence of coronary angioplasty implant and graft (ICD-10) Family History Other ASCVD (arteriosclerotic cardiovascular disease) Social History Smoking Status: Former smoker Do you use any of these nicotine containing products: None Non-prescribed substance use: denies use Exam Narrative: Exam Narrative: General: Afebrile, no acute distress HEENT: Normocephalic, atraumatic, conjunctiva normal. MMM Neck: non-tender, supple Cardio: regular rate. regular rhythm Resp: Normal work of breathing, no respiratory distress, lungs clear bilaterally, no wheezing, rhonchi, rales Chest/Back: +TTP right lateral ribs, no visual signs of trauma, no midline tenderness, no CVA tenderness Abdomen: soft, non distension, no tenderness, no peritoneal signs Neuro: alert and fully oriented. CN II-XII grossly intact. Grossly normal strength and sensation in all extremities. MSK: no deformities. Normal range of motion Integumentary/Skin: no rash visualized, normal color Psych: normal affect, normal behavior Const: Vital Signs, click to edit/add: Vital Signs - 24 hr 07/15/25 03:49 Temperature 97.8 F Pulse Rate [Left P ulse Oximeter] 114 H Respiratory Rate 20 Blood Pressure [Ri ght Upper Arm] 139/96 H Pulse Oximetry 98 Oxygen Delivery Me thod Room Air Course Vital Signs Vital signs: Initial Vital Signs Temperature 97.8 F 07/15/25 03:49 Temperature Source Temporal Artery Scan 07/15/25 03:49 Pulse Rate 114 H 07/15/25 03:49 Respiratory Rate 20 07/15/25 03:49 Blood Pressure 139/96 H 07/15/25 03:49 Blood Pressure Mean 110 H 07/15/25 03:49 Blood Pressure Position Semi-Fowlers 07/15/25 03:49 Pulse Oximetry 98 07/15/25 03:49 Oxygen Delivery Method Room Air 07/15/25 03:49 Vital Signs Temperature 97.8 F 07/15/25 03:49 Pulse Rate 114 H 07/15/25 03:49 Respiratory Rate 20 07/15/25 03:49 Blood Pressure 139/96 H 07/15/25 03:49 Pulse Oximetry 98 07/15/25 03:49 Oxygen Delivery Method Room Air 07/15/25 03:49 Temperature 97.8 F 07/15/25 03:49 Pulse Rate 114 H 07/15/25 03:49 Respiratory Rate 20 07/15/25 03:49 Blood Pressure 139/96 H 07/15/25 03:49 Pulse Oximetry 98 07/15/25 03:49 Oxygen Delivery Method Room Air 07/15/25 03:49 Medical Decision Making MDM Narrative Medical decision making narrative: Tanner is a 60 yo male who presents to the ED for evaluation of rib pain. Upon arrival patient is nontoxic appearing, afebrile, in distress secondary to pain. Patient is slightly tachycardic upon arrival, blood pressure 139/96, oxygen 98% on room air. On examination patient with palpable/reproducible tenderness to palpation right lateral ribs however no respiratory distress. I reviewed patient's recent ED visit as well as CT of his chest/abdomen/pelvis on 06/07/2025 and chest x-ray on 06/15/2025. Patient declined anything for symptoms. Chest x-ray was performed. I personally reviewed interpreted chest x-ray which demonstrates patchy right lower lobe consolidation with trace right pleural effusion. No evidence of pneumothorax, no acute displaced fracture. I discussed results with patient, given his recent trauma/rib contusion, now with shortness of breath, right-sided chest/rib pain, will treat for pneumonia. Discussed deep breathing exercises, supportive care with Tylenol, ibuprofen, lidocaine patch, tramadol as needed for severe pain. Will discharge with a 7 day course of doxycycline. Patient also asking for refill on his nystatin swish and swallow. Plan for close outpatient follow-up with his primary care provider for follow-up. Strict return precautions discussed if persistent high fever, worsening chest pain, shortness of breath or any worsening symptoms. Patient understands and agrees the plan. Imaging Data Chest x-ray: Attestation: I have reviewed the pertinent imaging results. Radiologist's impression: Chest 2 views. COMPARISON: Chest radiograph 06/15/2025 FINDINGS: Cardiovascular and mediastinum: Mild cardiomegaly is stable. Mediastinum is stable. Lungs and pleural spaces: Lung volumes are slightly low. Patchy right lower lobe consolidation trace right pleural effusion. No pneumothorax. Bones and soft tissues: No acute displaced fracture. IMPRESSION: Patchy right lower lobe consolidation and trace right pleural effusion is concerning for infection. Discharge Plan Discharge Clinical Impression: Rib pain on right side, Pneumonia Patient Disposition: Home, Self-Care Condition: Stable Additional Instructions: Please follow-up with your primary care provider in the next 3-5 days for further evaluation and follow-up. Please call to schedule an appointment. Please take antibiotics (doxycycline) twice daily as directed. We recommend taking [id number] Tylenol 1000 mg and ibuprofen 600 mg every 6 hours as needed for pain. You may take your tramadol as needed for severe pain or at bedtime. Please return to the emergency department if you develop high fever, severe chest pain, difficulty breathing, any worsening symptoms. It is a pleasure taking care of you today. We hope you feel better soon. Prescriptions: New nystatin 100,000 unit/mL suspension 4 ml PO QID 7 Days Qty: 112 0RF Rx Instructions: swish and swallow No Action clopidogrel 75 mg tablet 75 mg PO QDAY Qty: 90 3RF metoprolol succinate 25 mg tablet extended release 24 hr 25 mg PO QDAY Qty: 90 3RF pravastatin 40 mg tablet 40 mg PO QHS Qty: 90 3RF tramadol 50 mg tablet See Rx Instructions PO .ud PRN (Reason: pain) Qty: 60 1RF Rx Instructions: 1-2 Q6H prn pain orally UD PRN; lisinopril 20 mg tablet 20 mg PO QDAY Qty: 90 3RF multivitamin Tablet 1 tab PO QAM albuterol sulfate 90 mcg/actuation HFA aerosol inhaler 2 puff inhalation Q6H PRN (Reason: shortness of breath or wheezing) Qty: 6.7 0RF azithromycin 250 mg tablet See Rx Instructions PO .COMPLEX Qty: 6 0RF Rx Instructions: For 250 mg dose pack: take 500 mg today (day 1), then 250 mg for 4 days (days 2-5) PO ondansetron 4 mg tablet,disintegrating 4 mg PO Q8H PRN (Reason: nausea and vomiting) Qty: 14 0RF albuterol sulfate 90 mcg/actuation aerosol powdr breath activated 2 inh inhalation Q4-6H PRNQty: 1 0RF nitroglycerin 0.4 mg tablet, sublingual 0.4 mg sublingual Q5-15M Qty: 25 3RF trazodone 100 mg tablet 100 mg PO QHS PRN (Reason: insomnia) Qty: 90 3RF Follow Up/Referrals: Deng Vieira MD [Primary Care Provider, Family Practice] Stand Alone Forms: [facility] Info Inst[facility]
[2025-07-15 05:19] VITALS: PULSE 98; RESP 18; O2SAT 97
== END 2025-07-15 05:25 | disposition home or self-care (01) ==
PROVIDERS: Emergency Provider Emergency Medicine; PCP Family Medicine
DX: R07.81 Pleurodynia (principal); J18.9 Pneumonia, unspecified organism; W17.89XA Other fall from one level to another, initial encounter
CPT/HCPCS: 71046; 99283; 99285

== ENCOUNTER 2025-07-20 11:07 | Inpatient (IN) | payer BC, SELFPAY ==
--- OUTSIDE RECORDS SUMMARY | 2025-07-20 11:10 | XMS_ITS | Clinical Summary ---
Author Organization [facility] Address [address] [place] [id number] Care Team Providers Care Sales Support Specialist Name Role Phone Deng Vieira MD Primary Care Provider [phone] Allergies Active Allergy Reactions Criticality Noted Date [...] call 911 25 tablet 6 10:52 AM EYELET RIVETER 09/19/20 16 Active metoprolol succinate (TOPROL XL) [...] appt for further refills. Call to schedule: [phone]. 180 Tablet 07/14/20 Active lisinopriL (PRINIVIL; ZESTRIL) 20 mg tabletIndications :ST elevation myocardial infarction (STEMI), unspecified artery (HC) Take 1 Tablet (20 mg) by mouth two times daily. 180 Tablet 1 10/07/192024 Discontinued Active Problems Problem Noted Date Diagnosed Date Coronary artery disease invo lving cabazon coronary artery of cabazon heart without angina pectoris 08/09/2021 Rib pain on left side 09/17/2016 HTN (hypertension) 03/19/2013 Arteriosclerotic cardiovascular disease (ASCVD) 10/16/2008 Overview (08/25/2021): - Acute NV 06/01. Thrombotic lesion in the mid RCA, [...] (10/16/2008): New diagnosis on pathology obtained at [facility]. 10/16 Patient & not fully aware of [...] Type Department Care Team Description 07/11/2025 Refill [facility] [address] [place] [address] Andi Viera MD Refill Request (Lisinopril) 06/26/2025 Telephone [facility] [address] [place] [address] [address] [place] [address] Demar Cruz, DO Screening 06/25/2025 Nurse Triage [facility] [address] [place] [phone] Demar Cruz, DO Results (Cervical MBB #2 Pain Diary ) 06/19/2025 Orders Only [facility] [address] [facility] [address] [place] [address] Demar Cruz, DO <No scans attached> 06/03/2025 Telephone [facility] [address] [facility] [address] [place] [address] Demar Cruz DO Screening (Injection prescreening- Cervical MBB #2) 06/01/2025 Nurse Triage [facility] [address] [place] [phone] Demar Cruz DO Results (Pain Diary L cervical MBB #1) 05/29/2025 Orders Only [facility] [address] [facility] [address] [place] [phone] Demar Cruz, DO <No scans attached> 05/19/2025 Transcribe Orders [facility] [address] [place] [address] Renard Levi PA 05/06/2025 Telephone [facility] [address] [place] [address] [address] [place] [address] Demar Cruz DO Screening (Injection Prescreening ) 05/05/2025 Transcribe Orders [facility] [address] [place] [address] Renard Levi PA from Last 3 Months [...] Comments Good Health Other family is in [facility], no health conditions run in the [...] on file Legal Sex Male 6:34 AM EYELET RIVETER Gender Identity Not on file Sexual Orientation Not on file Obstetrics History Last Filed Vital Signs Vital Sign Reading Time Taken Comments Blood Pressure 138/85 03/15/2023 7:56 AM CDT Pulse 53 03/15/2023 7:56 AM CDT Temperature 36.6 C (97.8 F) 08/25/2021 8:17 AM EYELET RIVETER Respiratory Rate 16 08/25/2021 8:17 AM EYELET RIVETER Oxygen Saturation 100% 03/15/2023 7:56 AM CDT Inhaled Oxygen Concentration - - Weight 90.6 kg (199 lb 12.8 oz) 03/15/2023 7:56 AM CDT Height 167.6 cm (5' 6) 08/24/2021 11:0 0 AM EYELET RIVETER Body Mass Index 32.25 08/24/2021 11:00 AM EYELET RIVETER Plan of Treatment Health Maintenance Due Date [...] - Risk 60-74 years 1-dose series) 2023 Influenza Vaccine (#1) 2025 , 06/07/2020, 07/26/2019, Additional history exists Lipids for age 45-75 08/24/2026 08/24/2021, 12/04/2018, 08/31/2017, Additional history exists Hepatitis B series for 19+ Completed 02/24, 09/08/2014, 08/04/2014 Procedures Procedure Name Priority Date/Time Associated Diagnosis Comments LIPID PANEL AALIYAH 08/24/2021 11:05 AM EYELET RIVETER from Last 3 Months or Most Recently Relevant to Health Maintenance Results * Lipid Panel (08/24/2021 11:05 AM EYELET RIVETER) CHOLESTEROL,TOTAL 177 100 - 199 mg/dL 08/24/2021 11:56 AM EYELET RIVETER [facility] TRIGLYCERIDES 138 <150 mg/dL 08/24/2021 11:56 AM EYELET RIVETER [facility] HDL CHOLESTEROL 41 >40 mg/dL 11:56 AM EYELET RIVETER [facility] NON-HDL CHOLESTEROL 136 <145 mg/dl 08/24/2021 11:56 AM EYELET RIVETER [facility] CHOL/HDL RATIO 4.32 <4.50 08/24/2021 11:56 AM EYELET RIVETER [facility] LDL CHOLESTEROL 108 <=130 mg/dL 08/24/2021 11:56 AM EYELET RIVETER [facility] VLDL CHOLESTEROL 28 <=30 mg/dL 08/24/2021 11:56 AM EYELET RIVETER [facility] PROVIDER ORDERED STATUS RANDOM 08/24/2021 11:56 AM EYELET RIVETER [facility] Blood BLOOD SPECIMEN / Unknown Butterfly / Unknown 08/24/2021 11:05 AM EYELET RIVETER 08/24/2021 11:13 AM EYELET RIVETER us Le Strong NP CHEMISTRY Final Result [facility] [address] [place] [address], [place] from Last 3 Months or Most Recently Relevant to Health Maintenance Insurance [facility] [employer] WORK[employer] COMP WC [employer] Advance [...] 2:14 PM 10/24/2008 3:19 PM Care Teams Sales Support Specialist Relationship Specialty Start Date End Date Dneg Vieira MD PCP - General Family Practice 10/20/16
[2025-07-20 11:12] VITALS: BP 128/88; PULSE 112; RESP 16; TEMP 36.7; O2SAT 98; BMI 29.1
--- NOTE | 2025-07-20 11:46 | CRLHL7_ITS ---
For Patients: As a result of the Century Cures Act, medical imaging exams and procedure reports are released immediately into your electronic medical record. You may view this report before your referring provider. If you have questions, please contact your health care provider. INDICATION: Recent fall, right-sided trauma, worsening shortness of breath. TECHNIQUE: CT chest PE was acquired with 95 cc Isovue 370 IV contrast. MIP reconstructions were performed. COMPARISON: Radiographs, July 15, 2025. FINDINGS: Heart and vasculature: Contrast opacification of the pulmonary arterial tree is adequate. Gradual diminished flow in the right lower lobe segmental/subsegmental pulmonary arteries, possibly related to increased pressures secondary to adjacent moderate right pleural effusion. Otherwise, no sign of pulmonary embolism. Cardiomegaly with coronary artery calcifications/stents. Thoracic aorta and pulmonary artery are normal in caliber. Lungs and pleura: Mosaic attenuation throughout the lungs with moderate right and small left pleural effusions with associated compressive atelectasis. Lymph nodes/mediastinum: No mediastinal, hilar, or axillary adenopathy. Chest wall: No masses. Upper abdomen: No acute or significant findings. Bones: Acute/subacute right anterolateral 6th, 7th, 8th rib fractures. IMPRESSION: Gradual diminished flow in the right lower lobe segmental/subsegmental pulmonary arteries, possibly related to increased pressure secondary to adjacent moderate right pleural effusion. Distal pulmonary embolism not entirely excluded. Otherwise, no central pulmonary embolism or right heart strain. Cardiomegaly with mosaic attenuation throughout the lungs, likely pulmonary edema, with associated moderate right and small left pleural effusions. Acute/subacute right anterior lateral 6th, 7th, 8th rib fractures. Case discussed with Lena gamboa at 1:20 p.m. on 07/20/2025. Please note that all CT scans at this facility use dose modulation, iterative reconstruction, and/or weight-based dosing when appropriate to reduce radiation dose to as low as reasonably achievable. Dictated by Shahzad Rouse MD @ 07/20/2025 1:19:33 PM (Electronically Signed)
--- NOTE | 2025-07-20 12:08 | ED.GENADULT ---
HPI - General Adult General Date Seen: 07/20/25 Chief complaint: Shortness of Breath/Dyspnea Stated complaint: Shortness of breath Time Seen by Provider: 07/20/25 11:15 History of Present Illness HPI narrative: Patient is a 60-year-old gentleman who was seen here initially in May after having a fall onto a bucket with some right rib pain. He had a CT scan of his chest abdomen pelvis at that time which was negative. Since then he has been seen multiple times, he has had some ongoing rib pain, nausea, shortness of breath, cough. He had a chest x-ray done on June 15 in urgent care, this showed a little bit of interstitial prominence which could represent mild pulmonary edema or atypical infection. He was treated with azithromycin at that time. Was seen here on July 15 with ongoing rib pain, had a chest x-ray at that point which showed an infiltrate at the right base and he was put on doxycycline. He comes in today because he says he just can not breathe. He feels short of breath particularly when he lays down although it is there during the day as well. He continues to have some rib pain although he feels generally that is improved. He has a history of significant coronary artery disease, multiple stents, last seen by cardiology in 2023. The last echo I see is in 2021 at which time he had a normal EF, mild mitral regurgitation, mention was made at that visit of repeating an echo but I do not have those records. He denies fevers, lower extremity swelling or pain. No history of DVT or PE. He uses chewing tobacco, does not smoke cigarettes anymore. Most recent stents were in 2020. Related Data Home Medications ?Medication ?Instructions ?Recorded ?Confirmed multivitamin 1 tab PO QAM 06/11/24 07/20/25 baby asa 81 mg PO DAILY 07/20/25 07/20/25 venlafaxine 75 mg capsule,extended 225 mg PO DAILY 07/20/25 07/20/25 release 24 hr Previous Rx's ?Medication ?Instructions ?Recorded lisinopril 20 mg tablet 20 mg PO QDAY #90 tabs 10/10/23 nitroglycerin 0.4 mg sublingual 0.4 mg sublingual Q5-15M #25 ea 07/18/24 tablet albuterol sulfate 90 mcg/actuation 2 puff inhalation Q6H PRN 04/02/25 aerosol inhaler shortness of breath or wheezing #6.7 grams trazodone 100 mg tablet 100 mg PO QHS PRN insomnia #90 tabs 04/07/25 metoprolol succinate 25 mg 25 mg PO QDAY #90 tabs 04/13/25 tablet,extended release 24 hr pravastatin 40 mg tablet 40 mg PO QHS #90 tabs 04/13/25 ondansetron 4 mg disintegrating 4 mg PO Q8H PRN nausea and 06/29/25 tablet vomiting #14 tabs tramadol 50 mg tablet See Rx Instructions PO .ud PRN 07/01/25 pain #60 tabs nystatin 100,000 unit/mL oral 4 ml PO QID 7 days #112 mL 07/15/25 suspension Allergies Allergy/AdvReac Type Severity Reaction Status Date / Time acetaminophen (From Percocet) Allergy Mild Rash Verified 07/20/25 11:25 oxycodone (From Percocet) Allergy Mild Rash Verified 07/20/25 11:25 rosuvastatin Allergy Unknown Unknown Verified 07/20/25 11:25 simvastatin Allergy Unknown Unknown Verified 07/20/25 11:25 Review of Systems Status of ROS: Reports: 10 or more systems reviewed and unremarkable except as noted in History and below [facility] Medical History Bronchitis ?J40 - Bronchitis, not specified as acute or chronic (ICD-10) Cough ?R05.9 - Cough, unspecified (ICD-10) Oral thrush ?B37.0 - Candidal stomatitis (ICD-10) Strain of flexor muscle of right hip ?S76.011A - Strain of muscle, fascia and tendon of right hip, initial encounter (ICD-10) Strain of lumbar region ?S39.012A - Strain of muscle, fascia and tendon of lower back, initial encounter (ICD-10) Surgical History History of arthroscopy of right shoulder (02/01/11) ?Z98.890 - Other specified postprocedural states (ICD-10) H/O elbow surgery ?Z98.890 - Other specified postprocedural states (ICD-10) Status post vasectomy ?Z98.52 - Vasectomy status (ICD-10) Status post small bowel resection ?Z90.49 - Acquired absence of other specified parts of digestive tract (ICD-10) Status post repair of ligament of ankle (09/12/10) ?Z98.890 - Other specified postprocedural states (ICD-10) History of coronary artery stent placement (09/12/10) ?Z95.5 - Presence of coronary angioplasty implant and graft (ICD-10) Family History Other ASCVD (arteriosclerotic cardiovascular disease) Social History Smoking Status: Former smoker Do you use any of these nicotine containing products: None How often do you have a drink containing alcohol: monthly or less AUDIT-C Alcohol total score: 1 Non-prescribed substance use: denies use Exam Narrative: Exam Narrative: Vital signs reviewed In general, alert, nontoxic middle age male. Head: Normocephalic, atraumatic. Eyes: Sclera clear. Pupils equal and reactive. ENT: Mucous membranes moist. Neck: Supple without adenopathy. Heart: Regular rate and rhythm, he has a blowing systolic murmur heard best over the apex. Lungs: Breath sounds are decreased in the right lower and mid lung rodrigues. I do not hear any crackles. No abnormal breath sounds on the left. Mildly tachypneic, no increased work of breathing otherwise. Abdomen: Abdomen is soft, nondistended. He has some tenderness in the right upper quadrant without obvious organomegaly. Extremities: Well perfused, pulses intact. No significant edema. Neurologic: Alert, conversant. Speech fluent, face symmetric. Moves all extremities equally. Skin: Warm, dry well perfused. Affect: Normal. Const: Vital Signs, click to edit/add: Vital Signs - 24 hr 07/20/25 11:12 07/20/25 14:17 Temperature 98.1 F 96.6 F L Pulse Rate [Pulse Oximeter] 112 H 106 H Respiratory Rate 16 20 Blood Pressure [Ri ght Upper Arm] 128/88 137/96 H Pulse Oximetry 98 97 Oxygen Delivery Me thod Room Air Room Air Course Course ED Course: Patient presents with ongoing difficulties of shortness of breath, some right rib pain which seems to be improving, all of which seems to have started after a fall June 07. Multiple visits since then with ongoing symptoms, seems to be getting worse from a breathing standpoint. Diagnostic considerations would include pneumonia, pleural effusion, congestive heart failure, ACS, pulmonary embolism, pneumothorax, solid organ injury. He did have a negative CT scan at the time of his fall, last chest x-ray definitely showed consolidation in the right base. I think it is worthwhile today to do a CT scan of the chest PE protocol and make sure he does not have PE, confirm that that appears to be consolidation versus effusion. I also think he needs to have a little bit of cardiac workup today, the rib pain does not seem likely to be cardiac, but certainly has a significant cardiac history. Last stress test was several years ago. Will see if we can get the results of his most recent echo to see if the mitral regurgitation was significantly worsened, murmur today is loud, there is no mention of a murmur at his last cardiology visit, although the patient thinks that he does have history of heart murmur. Patient's labs reviewed and are most notable for mild elevation of his troponin at 0.1, a repeat at 90 minutes was 0.09. His BNP is markedly elevated at 9000, baseline unknown. EKG showed a sinus tachycardia, ventricular rate of 108, no acute ST segment changes, single PVC, anterior lateral infarct as well as inferior infarct age indeterminate. In light of stable mild elevation of his troponin I do not think this represents acute coronary syndrome. I reviewed his CT scan, he has a moderate right-sided effusion and a smaller effusion on the left. It does look like he has a couple of rib fractures better visible on today's CT scan. I did not see any evidence of large PE. I reviewed the CT with the radiologist on the phone, he notes effusions, 2 acute in 1 May be subacute rib fractures on the right without significant displacement. He also notes that probably due to the large amount of fluid on the right, there is minimal contrast that gets into the lower segmental arteries on the right, and therefore smaller PE cannot be excluded in that area. I reviewed his care with Dr. Viera who notes that a new echo would be indicated as well as admission for diuresis. I gave him 40 mg of IV Lasix here. We had him up to walk a little bit, his heart rate increases dramatically into the 150s and he feels short of breath, he looks dyspneic at rest although O2 sats have been okay. He remains at risk for respiratory deterioration, arrhythmia, and admission to the hospital is appropriate. Discussed with Dr. Camacho who accepts to the hospitalist's service. Vital Signs Vital signs: Initial Vital Signs Temperature 98.1 F 07/20/25 11:12 Temperature Source Temporal Artery Scan 07/20/25 11:12 Pulse Rate 112 H 07/20/25 11:12 Respiratory Rate 16 07/20/25 11:12 Blood Pressure 128/88 07/20/25 11:12 Blood Pressure Mean 101 07/20/25 11:12 Blood Pressure Position Sitting 07/20/25 11:12 Pulse Oximetry 98 07/20/25 11:12 Oxygen Delivery Method Room Air 07/20/25 11:12 Vital Signs Temperature 98.1 F 07/20/25 11:12 Pulse Rate 112 H 07/20/25 11:12 Respiratory Rate 16 07/20/25 11:12 Blood Pressure 128/88 07/20/25 11:12 Pulse Oximetry 98 07/20/25 11:12 Oxygen Delivery Method Room Air 07/20/25 11:12 Temperature 96.6 F L 07/20/25 14:17 Pulse Rate 106 H 07/20/25 14:17 Respiratory Rate 20 07/20/25 14:17 Blood Pressure 137/96 H 07/20/25 14:17 Pulse Oximetry 97 07/20/25 14:17 Oxygen Delivery Method Room Air 07/20/25 14:17 Medications Administered Medications: Generic Name Dose Route Start Last Admin Trade Name Freq PRN Reason Stop Dose Admin Perflutren Lipid Microsphere 2 ml 07/20/25 15:07 07/20/25 16:43 Perflutren Lipid Microspheres 2 Ml Vial IVP 2 ml ONCE PRN Administration Discontinued Medications Generic Name Dose Route Start Last Admin Trade Name Freq PRN Reason Stop Dose Admin Furosemide 40 mg 07/20/25 14:42 07/20/25 15:03 Furosemide 10 Mg/Ml Inj IVP 07/20/25 14:43 40 mg ONCE ONE Administration Medical Decision Making Lab Data Labs: Lab Results 07/20/25 07/20/25 07/20/25 Range/Units 11:47 12:00 13:55 WBC 9.52 (4.50-11.00) K/uL RBC 5.17 (4.30-5.90) m/uL Hgb 14.7 (13.5-17.5) gm/dL Hct 47.0 (37.0-53.0) % MCV 91 (80-100) fL MCH 28 (26-34) pg MCHC 31 L (32-36) gm/dL RDW Coeff of Sneha 15.4 (11.5-15.5) % Plt Count 291 (140-440) K/uL Neut % (Auto) 71.6 (42.0-72.0) % Lymph % (Auto) 17.3 L (20-44) % Alexander % (Auto) 10.1 (0.0-11.0) % Eos % (Auto) 0.5 (0.0-7.0) % Baso % (Auto) 0.3 (0.0-3.0) % Neut # (Auto) 6.81 (1.7-7.0) K/uL Lymph # (Auto) 1.60 (0.90-2.90) K/uL Alexander # (Auto) 1.00 H (0.00-0.90) K/UL Eos # (Auto) 0.05 (0.00-0.50) K/uL Baso # (Auto) 0.03 (0.00-0.30) K/uL Abs Immat Gran (auto) 0.02 (0.00-0.30) K/uL Imm/Tot Granulo (auto) 0.2 % Sodium 138 (135-149) mmol/L Potassium 4.0 (3.6-5.1) mmol/L Chloride 102 (96-114) mmol/L Carbon Dioxide 25 (20-32) mmol/L Anion Gap 11 (7-15) mEq/L BUN 17 (7-30) mg/dL Creatinine 1.4 (0.5-1.5) mg/dL Estimated Creat Clear 51.15 Estimated GFR 57 ml/min Glucose 104 (60-115) mg/dL Calcium 8.9 (8.4-10.6) mg/dL Total Bilirubin 1.2 (0.1-1.5) mg/dL Direct Bilirubin 0.7 H (0.0-0.5) mg/dL AST 29 (12-35) U/L ALT 41 (4-50) U/L Alkaline Phosphatase 88 (40-150) U/L Troponin I 0.09 H* (0.01-0.04) ng/mL NT-Pro-B Natriuret Pep 8970 H (See Note) pg/mL Total Protein 6.5 (6.0-8.3) g/dL Albumin 3.5 (3.3-5.0) g/dL POC Troponin I 0.10 H (0.01-0.04) ng/ml Imaging Data CT scan - chest: Attestation: I have reviewed the pertinent imaging results. Radiologist's impression: Patient: Deshawn Magallon MR#: [id number] : 1965 Acct:[id number] Loc: ED Service Date: 07/20/[address]: Ordering Physician: Lena Gamboa M.D. Date of Service: 07/20/25 Procedure(s): CT angio chest PE protocol Accession Number(s): [id number] cc: Lena Gamboa M.D.; Deng Vieira M.D.~ For Patients: As a result of the Cures Act, medical imaging exams and procedure reports are released immediately into your electronic medical record. You may view this report before your referring provider. If you have questions, please contact your health care provider. INDICATION: Recent fall, right-sided trauma, worsening shortness of breath. TECHNIQUE: CT chest PE was acquired with 95 cc Isovue 370 IV contrast. MIP reconstructions were performed. COMPARISON: Radiographs, July 15, 2025. FINDINGS: Heart and vasculature: Contrast opacification of the pulmonary arterial tree is adequate. Gradual diminished flow in the right lower lobe segmental/subsegmental pulmonary arteries, possibly related to increased pressures secondary to adjacent moderate right pleural effusion. Otherwise, no sign of pulmonary embolism. Cardiomegaly with coronary artery calcifications/stents. Thoracic aorta and pulmonary artery are normal in caliber. Lungs and pleura: Mosaic attenuation throughout the lungs with moderate right and small left pleural effusions with associated compressive atelectasis. Lymph nodes/mediastinum: No mediastinal, hilar, or axillary adenopathy. Chest wall: No masses. Upper abdomen: No acute or significant findings. Bones: Acute/subacute right anterolateral 6th, 7th, 8th rib fractures. IMPRESSION: Gradual diminished flow in the right lower lobe segmental/subsegmental pulmonary arteries, possibly related to increased pressure secondary to adjacent moderate right pleural effusion. Distal pulmonary embolism not entirely excluded. Otherwise, no central pulmonary embolism or right heart strain. Cardiomegaly with mosaic attenuation throughout the lungs, likely pulmonary edema, with associated moderate right and small left pleural effusions. Acute/subacute right anterior lateral 6th, 7th, 8th rib fractures. Case discussed with Lena gamboa at 1:20 p.m. on 07/20/2025. Please note that all CT scans at this facility use dose modulation, iterative reconstruction, and/or weight-based dosing when appropriate to reduce radiation dose to as low as reasonably achievable. Dictated by Shahzad Rouse MD @ 07/20/2025 1:19:33 PM
[2025-07-20 12:16] LABS: Troponin, Point-of-Care* 0.10 ng/ml (0.01-0.04)
[2025-07-20 12:25] LABS: Albumin* 3.5 g/dL (3.3-5.0); Chloride* 102 mmol/L (96-114); Potassium* 4.0 mmol/L (3.6-5.1); Sodium* 138 mmol/L (135-149)
[2025-07-20 12:28] LABS: Alanine Aminotransferase* 41 U/L (4-50); Alkaline Phosphatase* 88 U/L (40-150); Anion Gap 11 mEq/L (7-15); Aspartate Amino Transferase* 29 U/L (12-35); Bilirubin Direct* 0.7 mg/dL (0.0-0.5); Bilirubin Total* 1.2 mg/dL (0.1-1.5); Blood Urea Nitrogen* 17 mg/dL (7-30); Calcium* 8.9 mg/dL (8.4-10.6); Carbon Dioxide* 25 mmol/L (20-32); Creatinine* 1.4 mg/dL (0.5-1.5); Est. Creatinine Clearance* 51.15; Estimated Glomerular Filt Rate 57 ml/min; Glucose* 104 mg/dL (60-115); Total Protein* 6.5 g/dL (6.0-8.3)
[2025-07-20 12:33] LABS: Hematocrit* 47.0 % (37.0-53.0); Hemoglobin* 14.7 gm/dL (13.5-17.5); Immature Granulocytes Abs Auto 0.02 K/uL (0.00-0.30); Immature Granulocytes Pct Auto 0.2 %; Mean Corpuscular HGB Conc 31 gm/dL (32-36); Mean Corpuscular Hemoglobin 28 pg (26-34); Mean Corpuscular Volume 91 fL (80-100); RDW Coefficient of Variation % 15.4 % (11.5-15.5); Red Blood Count* 5.17 m/uL (4.30-5.90); White Blood Count* 9.52 K/uL (4.50-11.00)
[2025-07-20 12:34] LABS: Lymphocytes Absolute Auto 1.60 K/uL (0.90-2.90); Slide Review Reflex No
[2025-07-20 12:55] LABS: NT Pro B Type NatriureticPept* 8970 pg/mL (See Note)
[2025-07-20 14:17] VITALS: BP 137/96; PULSE 106; RESP 20; TEMP 35.9; O2SAT 97
[2025-07-20] MEDS: FUROSEMIDE 10 MG/ML inj 40 MG IVP (15:03)
--- NOTE | 2025-07-20 15:45 | PM.IMHP1 ---
Hospitalist- H&P: HPI History of Present Illness Date Seen: 07/20/25 Chief complaint: Shortness of breath Narrative: Deshawn Magallon is a 60 year old male who presented to the ER this afternoon for persistent R sided chest pain, shortness of breath, cough, and nausea. Symptoms first noted after falling through a roof (approximately 8 feet) onto a bucket on 06/07/25. He was seen the day of that injury with no acute findings on imaging. Since then, he has continued to feel poorly with rib pain, cough, nausea, tachycardia. He had 2 urgent care visits on 06/18 and 06/29; was given a course of azithromycin on 06/18/2025 for possible atypical infection (vs pulmonary edema) on chest x-ray. Had labs drawn in PCP's office with mild elevation of AST and ALT, mild elevation of CRP at 3.9. In the ER on 07/15, repeat CXR noted RLL consolidation/pleural effusion, started on course of Doxycycline. He's continuing to feel more dyspneic ER Course and Findings: - tachycardia, HR up to 150s with ambulation - reassuring electrolytes, troponin 0.09, BNP 8970 - CTA of chest: acute/subacute R anterior lateral fractures of ribs 6, 7, and 8. No large central PE (distal PE not excluded), no R heart strain. Moderate R pleural effusion, small L pleural effusion Medical Decision Making Medical Decision Making Has patient completed a Health Care Directive: No [facility] Medical History Bronchitis ?J40 - Bronchitis, not specified as acute or chronic (ICD-10) Cough ?R05.9 - Cough, unspecified (ICD-10) Oral thrush ?B37.0 - Candidal stomatitis (ICD-10) Strain of flexor muscle of right hip ?S76.011A - Strain of muscle, fascia and tendon of right hip, initial encounter (ICD-10) Strain of lumbar region ?S39.012A - Strain of muscle, fascia and tendon of lower back, initial encounter (ICD-10) Surgical History History of arthroscopy of right shoulder (02/01/11) ?Z98.890 - Other specified postprocedural states (ICD-10) H/O elbow surgery ?Z98.890 - Other specified postprocedural states (ICD-10) Status post vasectomy ?Z98.52 - Vasectomy status (ICD-10) Status post small bowel resection ?Z90.49 - Acquired absence of other specified parts of digestive tract (ICD-10) Status post repair of ligament of ankle (09/12/10) ?Z98.890 - Other specified postprocedural states (ICD-10) History of coronary artery stent placement (09/12/10) ?Z95.5 - Presence of coronary angioplasty implant and graft (ICD-10) Family History Other ASCVD (arteriosclerotic cardiovascular disease) Social History Smoking Status: Former smoker Do you use any of these nicotine containing products: None How often do you have a drink containing alcohol: monthly or less AUDIT-C Alcohol total score: 1 Non-prescribed substance use: denies use Meds Home Medications and Allergies Home Medications ?Medication ?Instructions ?Recorded ?Confirmed ?Type lisinopril 20 mg tablet 20 mg PO QDAY #90 tabs 10/10/23 07/20/25 Rx multivitamin 1 tab PO QAM 06/11/24 07/20/25 History nitroglycerin 0.4 mg sublingual 0.4 mg sublingual Q5-15M #25 ea 07/18/24 07/20/25 Rx tablet albuterol sulfate 90 mcg/actuation 2 puff inhalation Q6H PRN 04/02/25 07/20/25 Rx aerosol inhaler shortness of breath or wheezing #6.7 grams trazodone 100 mg tablet 100 mg PO QHS PRN insomnia #90 tabs 04/07/25 07/20/25 Rx metoprolol succinate 25 mg 25 mg PO QDAY #90 tabs 04/13/25 07/20/25 Rx tablet,extended release 24 hr pravastatin 40 mg tablet 40 mg PO QHS #90 tabs 04/13/25 07/20/25 Rx ondansetron 4 mg disintegrating 4 mg PO Q8H PRN nausea and 06/29/25 07/20/25 Rx tablet vomiting #14 tabs tramadol 50 mg tablet See Rx Instructions PO .ud PRN 07/01/25 07/20/25 Rx pain #60 tabs nystatin 100,000 unit/mL oral 4 ml PO QID 7 days #112 mL 07/15/25 07/20/25 Rx suspension baby asa 81 mg PO DAILY 07/20/25 07/20/25 History venlafaxine 75 mg capsule,extended 225 mg PO DAILY 07/20/25 07/20/25 History release 24 hr Allergies Allergy/AdvReac Type Severity Reaction Status Date / Time acetaminophen (From Percocet) Allergy Mild Rash Verified 07/20/25 11:25 oxycodone (From Percocet) Allergy Mild Rash Verified 07/20/25 11:25 rosuvastatin Allergy Unknown Unknown Verified 07/20/25 11: simvastatin Allergy Unknown Unknown Verified 07/20/25 11:25 Exam Const: Vital Signs, click to edit/add: Vital Signs - 24 hr 07/20/25 11:12 07/20/25 14:17 Temperature 98.1 F 96.6 F L Pulse Rate [Pulse Oximeter] 112 H 106 H Respiratory Rate 16 20 Blood Pressure [Ri ght Upper Arm] 128/88 137/96 H Pulse Oximetry 98 97 Oxygen Delivery Me thod Room Air Room Air Hospitalist - H&P: Result Labs Labs: Short CBC 07/20/25 Range/Units 12:00 WBC 9.52 (4.50-11.00) K/uL Hgb 14.7 (13.5-17.5) gm/dL Hct 47.0 (37.0-53.0) % Plt Count 291 (140-440) K/uL BMP 07/20/25 12:00 Sodium 138 Potassium 4.0 Chloride 102 Carbon Dioxide 25 BUN 17 Creatinine 1.4 Glucose 104 Calcium 8.9 Cardiac Enzymes 07/20/25 Range/Units 13:55 Troponin I 0.09 H* (0.01-0.04) ng/mL Liver Function 07/20/25 Range/Units 12:00 Total Bilirubin 1.2 (0.1-1.5) mg/dL Direct Bilirubin 0.7 H (0.0-0.5) mg/dL AST 29 (12-35) U/L ALT 41 (4-50) U/L Alkaline Phosphatase 88 (40-150) U/L Albumin 3.5 (3.3-5.0) g/dL
[2025-07-20] MEDS: PERFLUTREN LIPID MICROSPHERES 2 ML VIAL IVP (16:43)
[2025-07-20 16:53] LABS: TSH With Reflex to FT4* 3.010 uIU/mL (0.270-4.200)
[2025-07-20 17:03] VITALS: BP 146/108; PULSE 111; RESP 18; O2SAT 93; BMI 28.5; BMI 28.6
--- NOTE | 2025-07-20 17:20 | P.DS_ITS ---
Transfer Discharge Sum: Prov Provider Date Seen: 07/20/25 Date of admission: 07/20/25 15:58 Primary care physician: Deng Vieira MD Admitting clinician: Viktoria Camacho Attending physician on admission: Viktoria Camacho Consults: Cardiology Attending physician on discharge: Viktoria Camacho Discharging clinician: Viktoria Camacho Anticipated date of transfer: 07/20/25 Receiving physician/facility: [facility], Dr. Viera DS: Diagnosis Discharge Diagnosis (1) HFrEF (heart failure with reduced ejection fraction): Status: Acute Problem details: - EF 10-15% per formal Cardiology read below - reviewed with Dr. Viera of Cardiology who recommends transfer to tertiary care center Final Impressions: 1. Normal LV size, normal wall thickness, severely reduced global systolic function with an estimated EF of 10-20%. 2. Moderately enlarged left atrium. 3. Grade 3 pattern of LV diastolic filling consistent with elevated mean LA pressure. 4. There is severe global left ventricular hypokinesis. 5. Right ventricular cavity size is moderately enlarged, global systolic RV function is moderately-severely reduced. 6. The aortic valve is sclerotic and tricuspid, no stenosis and mild to moderate regurgitation. 7. The mitral valve is sclerotic, moderate mitral regurgitation. 8. Tricuspid valve is normal, moderate tricuspid regurgitation. 9. The inferior vena cava is dilated, respiratory size variation less than 50%. 10. Severely increased estimated pulmonary pressures by tricuspid regurgitation velocity and right atrial pressure (59 mmHg plus RAP). 11. Severely elevated right atrial pressure. 12. Right pleural effusion. 13. Echo contrast was administered to enhance visualization of all left ventricular segments. 14. Compared to prior exam images of 09/05/2024: - The left ventricular cavity size increased, LV ejection fraction has significantly decreased. - Mitral regurgitation has increased. - Tricuspid regurgitation has increased. - The right ventricular systolic function has significantly decreased. - RV size has increased, the pleural effusion is new. (2) Dyspnea: Status: Acute Problem details: - likely 2/2 CHF findings - Lasix to keep UOP 200-300ml/hr (3) Rib pain on right side: Status: Acute Problem details: - incidentally noted to have rib fractures of 6th, 7th, 8th (fall on 06/07/25) (4) Right-sided chest wall pain: Status: Acute (5) Tachycardia: Status: Acute Transfer Discharge Sum: Med Medications Active and Home Medications: Home Medications lisinopril 20 mg tablet 20 mg PO QDAY #90 tabs 10/10/23 [Rx Confirmed 07/20/25] multivitamin 1 tab PO QAM 06/11/24 [History Confirmed 07/20/25] nitroglycerin 0.4 mg sublingual tablet 0.4 mg sublingual Q5-15M #25 ea 07/18/24 [Rx Confirmed 07/20/25] albuterol sulfate 90 mcg/actuation aerosol inhaler 2 puff inhalation Q6H PRN shortness of breath or wheezing #6.7 grams 04/02/25 [Rx Confirmed 07/20/25] trazodone 100 mg tablet 100 mg PO QHS PRN insomnia #90 tabs 04/07/25 [Rx Confirmed 07/20/25] metoprolol succinate 25 mg tablet,extended release 24 hr 25 mg PO QDAY #90 tabs 04/13/25 [Rx Confirmed 07/20/25] pravastatin 40 mg tablet 40 mg PO QHS #90 tabs 04/13/25 [Rx Confirmed 07/20/25] ondansetron 4 mg disintegrating tablet 4 mg PO Q8H PRN nausea and vomiting #14 tabs 06/29/25 [Rx Confirmed 07/20/25] tramadol 50 mg tablet See Rx Instructions PO .ud PRN pain #60 tabs 07/01/25 [Rx Confirmed 07/20/25] nystatin 100,000 unit/mL oral suspension 4 ml PO QID 7 days #112 mL 07/15/25 [Rx Confirmed 07/20/25] baby asa 81 mg PO DAILY 07/20/25 [History Confirmed 07/20/25] venlafaxine 75 mg capsule,extended release 24 hr 225 mg PO DAILY 07/20/25 [History Confirmed 07/20/25] Active Medications Perflutren Lipid Microsphere (Perflutren Lipid Microspheres 2 Ml Vial) 2 ml IVP ONCE PRN Last Admin: 07/20/25 16:43 Dose: 2 ml Sodium Chloride (Sodium Chloride 0.9 % (Flush) 10 Ml Syringe) 5 ml IVF .FLUSH PRN Sodium Chloride (Sodium Chloride 0.9 % (Flush) 10 Ml Syringe) 5 ml IVF BID CATHRYN Transfer Discharge Sum: Hosp Hospital Course Hospital course: Deshawn Magallon is a 60 year old male who presented to the ER this afternoon for persistent R sided chest pain, shortness of breath, cough, and nausea. Symptoms first noted after falling through a roof (approximately 8 feet) onto a bucket on 06/07/25. He was seen the day of that injury with no acute findings on imaging. Since then, he has continued to feel poorly with rib pain, cough, nausea, tachycardia. He had 2 urgent care visits on 06/18 and 06/29; was given a course of azithromycin on 06/18/2025 for possible atypical infection (vs pulmonary edema) on chest x- ray. Had labs drawn in PCP's office with mild elevation of AST and ALT, mild elevation of CRP at 3.9. In the ER on 07/15, repeat CXR noted RLL consolidation/pleural effusion, started on course of Doxycycline. Nonsmoker, uses chewing tobacco occasionally. No ETOH and no drug use. He's continued to feel more dyspneic and represented to ER today. ER Course and Findings: - tachycardia, HR up to 150s with ambulation - reassuring electrolytes, troponin 0.09, BNP 8970 - CTA of chest: acute/subacute R anterior lateral fractures of ribs 6, 7, and 8. No large central PE (distal PE not excluded), no R heart strain. Moderate R pleural effusion, small L pleural effusion Upon arrival to the floor, we obtained a TTE which exhibited an EF of 10-15%. Reviewed case with Dr. Viera of Cardiology, who recommends transfer for Cardiology intervention. Time Spent with Patient Time attestation: Total time spent providing and/or coordinating transfer services: Total time spent: Greater than 30 minutes Exam Narrative: Exam Narrative: GEN: Alert and oriented, answering questions appropriately. Speaking in full sentences, does appear to be short of breath HEENT: EOMIs bilaterally, no scleral icterus CV: RRR, holosystolic murmur heard across precordium and in left mid axillary line, most pronounced at left sternal border R: No wheezing, decreased bibasilar breath sounds bilaterally Ext: wwp, 1+ pitting edema to mid gonzalez Skin: No concerning skin lesions or rashes on exposed skin Neuro: Nonfocal Psych: Appropriate Const: Vital Signs, click to edit/add: Vital Signs - 24 hr 07/20/25 11:12 07/20/25 14:17 Temperature 98.1 F 96.6 F L Pulse Rate [Pulse Oximeter] 112 H 106 H Respiratory Rate 16 20 Blood Pressure [Ri ght Upper Arm] 128/88 137/96 H Pulse Oximetry 98 97 Oxygen Delivery Me thod Room Air Room Air Transfer Discharge Sum: Data Data Completed and Pending Completed studies during hospitalization: INDICATION: Recent fall, right-sided trauma, worsening shortness of breath. TECHNIQUE: CT chest PE was acquired with 95 cc Isovue 370 IV contrast. MIP reconstructions were performed. COMPARISON: Radiographs, July 15, 2025. FINDINGS: Heart and vasculature: Contrast opacification of the pulmonary arterial tree is adequate. Gradual diminished flow in the right lower lobe segmental/subsegmental pulmonary arteries, possibly related to increased pressures secondary to adjacent moderate right pleural effusion. Otherwise, no sign of pulmonary embolism. Cardiomegaly with coronary artery calcifications/stents. Thoracic aorta and pulmonary artery are normal in caliber. Lungs and pleura: Mosaic attenuation throughout the lungs with moderate right and small left pleural effusions with associated compressive atelectasis. Lymph nodes/mediastinum: No mediastinal, hilar, or axillary adenopathy. Chest wall: No masses. Upper abdomen: No acute or significant findings. Bones: Acute/subacute right anterolateral 6th, 7th, 8th rib fractures. IMPRESSION: Gradual diminished flow in the right lower lobe segmental/subsegmental pulmonary arteries, possibly related to increased pressure secondary to adjacent moderate right pleural effusion. Distal pulmonary embolism not entirely excluded. Otherwise, no central pulmonary embolism or right heart strain. Cardiomegaly with mosaic attenuation throughout the lungs, likely pulmonary edema, with associated moderate right and small left pleural effusions. Acute/subacute right anterior lateral 6th, 7th, 8th rib fractures. Case discussed with Lena gamboa at 1:20 p.m. on 07/20/2025. Please note that all CT scans at this facility use dose modulation, iterative reconstruction, and/or weight-based dosing when appropriate to reduce radiation dose to as low as reasonably achievable. Dictated by Shahzad Rouse MD @ 07/20/2025 1:19:33 PM Additional Comments Additional comments: This note to serve as both H&P and Discharge summary for patient. Transfer Discharge Sum: A/P Plan Functional capacity at transfer: independent ambulation Discharge Plan Discharge Disposition: [facility] Date of Admission: 07/20/25 15:58 Attending Provider on Discharge: Viktoria Camacho Primary Care Provider: Deng Vieira Discharge Orders: Transfer of Care to Other Hospital (ORDER); Ordered 07/20/25 Ordered By: Viktoria Camacho Oxygen: No Urinary Catheter: No Services not available here: Cardiology
[2025-07-20 18:00] VITALS: PULSE 113
[2025-07-20 19:15] VITALS: BP 145/93; PULSE 111; RESP 20; TEMP 36.7; O2SAT 96
--- NOTE | 2025-07-20 19:44 | PC.NURSE ---
Nursing Care Hours: [id number] Pt arrived to unit alert and oriented. Stable gait. SOB with exertion. Stable spo2 on RA. Denies pain. LS clear. Murmur heard on auscultation. Fingers cold and dusky. ECHO done with contrast. Large clear pale yellow u/o. Tolerating regular diet but pt reports decreased appetite with recent weight loss. Nurse to nurse done via telephone to RN at [facility].
--- NOTE | 2025-07-20 20:17 | PC.NURSE ---
End of shift report: Patient transferred to [place] at 1934 via ambulance. Nurse to nurse was given by previous RN to Kim HEATON at [phone]. Belongings gone through and are with the patient. VSS. On RA. Denies pain. Afebrile. Pt tolerating regular diet. Pt ambulates ind in room. IV is intact and patent.
== END 2025-07-20 19:34 | disposition short-term general hospital (02) | DRG 194 ==
LOC: ED 11:47 → MEDSURG 15:58
PROVIDERS: Admitting Provider Family Medicine; Emergency Provider Emergency Medicine; PCP Family Medicine; Visit Provider Family Medicine
DX: I11.0 Hypertensive heart disease with heart failure (principal); I50.23 Acute on chronic systolic (congestive) heart failure; S22.41XA Multiple fractures of ribs, right side, initial encounter for closed fracture; I08.3 Combined rheumatic disorders of mitral, aortic and tricuspid valves; I25.10 Atherosclerotic heart disease of native coronary artery without angina pectoris; Z95.5 Presence of coronary angioplasty implant and graft; R00.0 Tachycardia, unspecified; R07.89 Other chest pain; Z72.0 Tobacco use; Z91.81 History of falling
CPT/HCPCS: 36415; 71275; 80048; 80076; 83880; 84443; 84484; 85025; 93005; 93306; 99284; 99285; J1938; Q9957; Q9967

== ENCOUNTER 2025-07-20 19:25 | Outpatient (CLI) | payer BC, SELFPAY | END 2025-07-20 19:26 | disposition home or self-care (01) | LOC: AMB 08-06 14:45 | PROVIDERS: PCP Family Medicine; Visit Provider Family Medicine | DX: I50.20 Unspecified systolic (congestive) heart failure (principal) | CPT/HCPCS: A0425; A0427 ==